=== PATIENT | female | born 1980 | race Two or more races ===

== ENCOUNTER 2019-03-30 07:21 | Emergency (ER) | payer OTHER ==
[~2019-03-30] VITALS: Ht 142.2 cm; Wt 86.6 kg
[2019-03-30 07:35] VITALS: BP 141/100
[2019-03-30 07:45] VITALS: BP 141/100
--- NOTE | 2019-03-30 07:52 | NUR ---
ER DISCHARGE NOTE: Patient is cleared to be discharged per . Patientt is AxO x 4, VSS Patient verbalized understanding of medication and discharge instructions.ID band removed. Patient is able to ambulate with steady gait and took all belongings.
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
== END 2019-03-30 07:45 | disposition home or self-care (01) ==
LOC: EMR 07:40
DX: T78.40XA Allergy, unspecified, initial encounter (principal); X58.XXXA Exposure to other specified factors, initial encounter; T22.00XA Burn of unspecified degree of shoulder and upper limb, except wrist and hand, unspecified site, initial encounter; X08.8XXA Exposure to other specified smoke, fire and flames, initial encounter; Y92.9 Unspecified place or not applicable
CPT/HCPCS: 99282